=== PATIENT | female | born 1970 | race Caucasian/White ===

== ENCOUNTER 2023-02-07 09:24 | Outpatient (CLI) | payer OTHER ==
[~2023-02-07 09:24] MED LIST: Magnevist 469MG/ML 20 ML VIAL ONE
== END 2023-02-07 09:25 | disposition home or self-care (01) ==
LOC: BICMRI 09:24
PROVIDERS: ATTEND Family Medicine
DX: M47.22 Other spondylosis with radiculopathy, cervical region (principal); M50.11 Cervical disc disorder with radiculopathy, high cervical region; M48.02 Spinal stenosis, cervical region; M50.122 Cervical disc disorder at C5-C6 level with radiculopathy; M50.123 Cervical disc disorder at C6-C7 level with radiculopathy
CPT/HCPCS: 72050; 72156; A9579

== ENCOUNTER 2023-03-24 11:26 | Outpatient (CLI) | payer OTHER | END 2023-03-24 11:27 | disposition home or self-care (01) | LOC: RAD 11:26 | PROVIDERS: ATTEND Nurse Practitioner Family | DX: M25.532 Pain in left wrist (principal); M18.12 Unilateral primary osteoarthritis of first carpometacarpal joint, left hand ==

== ENCOUNTER 2023-07-10 14:13 | Outpatient (CLI) | payer OTHER | END 2023-07-10 14:14 | disposition home or self-care (01) | LOC: BICMAMMO 14:13 | PROVIDERS: ATTEND Family Medicine | DX: N63.21 Unspecified lump in the left breast, upper outer quadrant (principal) | CPT/HCPCS: 77066; G0279 ==